=== PATIENT | male | born 1955 | race Caucasian/White ===

== ENCOUNTER 2018-04-05 10:38 | Emergency (ER) | payer BC ==
[2018-04-05] MEDS ORDERED: NACL 0.9% 1000 ML 1,000 ML IV ONE (11:46)
--- NOTE | 2018-04-05 11:48 | Emergency Department Report ---
ED Syncope HPI - General Chief Complaint: Dizziness Stated Complaint: PAIN Time Seen by Provider: 04/05/18 11:34 Source: patient Exam Limitations: no limitations - History of Present Illness Initial Comments: This is a 62-year-old male, unknown to this provider, primary care doctor is Dr. Davila. Patient presents to the ER with a complaint of dizziness, near syncope, resolved unsteady gait. Also has a history of hypertension. 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 He reports another similar episode earlier on this week. His symptoms lasted for a few seconds. They're painless. They did not radiate anywhere. The patient has no complaints at this time. He denies headache, neck pain, chest pain, abdominal pain, shortness of breath, urinary symptoms. The patient denies DVT, pulmonary embolus risk factors. Timing/Prior Episodes: single episode today, recent history Precipitating Factors: Positive: blurred vision Context: standing Loss of Consciousness: brief (seconds) Current Symptoms: back to normal, dizziness, lightheadedness. denies: blurred vision, chest pain, diaphoresis, headache, injury, loss of bladder control, loss of bowel control, motionless, nausea, pale, shallow/rapid breathing, weak/ absent pulse, weakness - Related Data Allergies/Adverse Reactions: Allergies No Known Allergies Allergy (Unverified 04/05/18 10:48) Home Medications: Ambulatory Orders Aspirin [Aspirin TAB] 325 mg PO QDAY 04/05/18 Atenolol/Chlorthalidone [Atenolol-Chlorthalidone 100-25] 1 each PO DAILY ED Review of Systems ROS: Stated complaint: PAIN Other details as noted in HPI Comment: All other systems reviewed and negative ED Past Medical Hx - Past Medical History Hx Hypertension: Yes Additional medical history: Prolapsed rectum repaired as child. - Social History Smoking Status: Former Smoker Substance Use Type: None - Medications Home Medications: Home Medications Medication Instructions Recorded Confirmed Last Taken Type Aspirin [Aspirin TAB] 325 mg PO QDAY 04/05/18 04/05/18 Unknown History Atenolol/Chlorthalidone 1 each PO DAILY 04/05/18 04/05/18 04/05/18 History [Atenolol-Chlorthalidone 100-25] ED Physical Exam - General Limitations: No Limitations General appearance: alert, in no apparent distress - Head Head exam: Present: atraumatic, normocephalic - Eye Eye exam: Present: normal appearance, PERRL, EOMI, other (visual acuity intact to finger counting, color perception, reading at a close distance). Absent: nystagmus - ENT ENT exam: Present: normal exam, normal orophraynx, mucous membranes moist, normal external ear exam - Neck Neck exam: Present: normal inspection, full ROM - Respiratory Respiratory exam: Present: normal lung sounds bilaterally. Absent: respiratory distress - Cardiovascular Cardiovascular Exam: Present: regular rate, normal rhythm, normal heart sounds. Absent: bradycardia, tachycardia, irregular rhythm, systolic murmur, diastolic murmur, rubs, gallop - GI/Abdominal GI/Abdominal exam: Present: soft, normal bowel sounds. Absent: distended, tenderness, guarding, rebound, rigid, pulsatile mass - Rectal Rectal exam: Present: deferred - Extremities Exam Extremities exam: Present: normal inspection, full ROM, normal capillary refill. Absent: tenderness, pedal edema, joint swelling, calf tenderness - Back Exam Back exam: Present: normal inspection, full ROM. Absent: tenderness, CVA tenderness (R), paraspinal tenderness, vertebral tenderness - Neurological Exam Neurological exam: Present: alert, oriented X3, CN II-XII intact, normal gait ( negative pass pointing. Negative pronator drift. No pass pointing. Normal [id number]. Normal gait. Negative Romberg.), other (Extraocular movements intact. Tongue midline. No facial droop. Facial sensation intact to light touch in the V1, V2, V3 distribution bilaterally. 5 and 5 strength in 4 extremities.. Sensation is intact to light touch in 4 extremities.). Absent: motor sensory deficit - Psychiatric Psychiatric exam: Present: normal affect, normal mood - Skin Skin exam: Present: warm, dry, intact, normal color. Absent: rash ED Course Vital Signs 04/05/18 04/05/18 04/05/18 10:42 10:46 10:56 Temperature 98.4 F 98.7 F Pulse Rate 63 63 Respiratory 18 15 18 Rate Blood Pressure 122/74 Blood Pressure 132/75 [Left] O2 Sat by Pulse 96 95 97 Oximetry 04/05/18 04/05/18 04/05/18 11:10 11:15 11:31 Temperature Pulse Rate 63 59 L 76 Respiratory 16 9 L 11 L Rate Blood Pressure 98/66 100/76 Blood Pressure [Left] O2 Sat by Pulse 97 97 95 Oximetry 04/05/18 04/05/18 04/05/18 11:45 12:04 12:15 Temperature Pulse Rate 54 L 49 L 55 L Respiratory 13 16 Rate Blood Pressure 132/101 132/101 113/70 Blood Pressure [Left] O2 Sat by Pulse 97 Oximetry 04/05/18 04/05/18 04/05/18 12:30 12:45 13:01 Temperature Pulse Rate 65 56 L 56 L Respiratory 20 20 14 Rate Blood Pressure 124/103 124/73 121/74 Blood Pressure [Left] O2 Sat by Pulse 97 93 97 Oximetry 04/05/18 04/05/18 04/05/18 13:15 13:31 13:45 Temperature Pulse Rate 58 L 64 58 L Respiratory 12 14 23 Rate Blood Pressure 104/84 125/75 125/75 Blood Pressure [Left] O2 Sat by Pulse 96 96 100 Oximetry 04/05/18 04/05/18 04/05/18 14:00 14:21 14:31 Temperature Pulse Rate 57 L 69 62 Respiratory 19 19 Rate Blood Pressure 125/75 125/75 140/71 Blood Pressure [Left] O2 Sat by Pulse 98 99 Oximetry - Reevaluation(s) Reevaluation #1: 04/05/18 13:23 Differential diagnosis, including but not limited to: Orthostasis, vasovagal event, structural cardiac disease, transient ischemic attack, pulmonary embolus 04/05/18 14:05 Assessment and plan: 62-year-old male with a few episodes of lightheadedness, subjective unsteady gait, near syncope. He is clinically sober at this time, has a [place] Coma Scale of 15, NIH score of 0. He walks with a steady gait and has no cerebellar signs and is hemodynamically stable at this time. His EKG showed a left axis with a left anterior fascicular block, as well as right bundle-branch block morphology. Noncontrast CT scan of the brain was negative. A d-dimer was sent and is elevated, therefore CT scan of the chest is pending. Patient will be admitted to the hospital for evaluation of abnormal EKG, near syncope versus TIA. Does not meet TPA criteria at this time, given NIH score of 0. Reevaluation #2: 06/19/18 15:28 CT scan of the chest is negative. Vital signs remain unchanged. Case presented to the Hospital physician, Dr. Stovall, who accepted the patient to the medical service. ED Medical Decision Making - Lab Data Result diagrams: 04/05/18 12:37 04/05/18 12:37 Vital Signs 04/05/18 04/05/18 04/05/18 10:42 10:46 10:56 Temperature 98.4 F 98.7 F Pulse Rate 63 63 Respiratory 18 15 18 Rate Blood Pressure 122/74 Blood Pressure 132/75 [Left] O2 Sat by Pulse 96 95 97 Oximetry 04/05/18 11:10 Temperature Pulse Rate 63 Respiratory 16 Rate Blood Pressure Blood Pressure [Left] O2 Sat by Pulse 97 Oximetry Lab Results 04/05/18 04/05/18 04/05/18 Range/Units 10:57 12:37 12:37 WBC 7.8 (4.5-11.0) K/mm3 RBC 4.89 (3.65-5.03) M/mm3 Hgb 14.8 (11.8-15.2) gm/dl Hct 43.8 (35.5-45.6) % MCV 90 (84-94) fl MCH 30 (28-32) pg MCHC 34 (32-34) % RDW 14.1 (13.2-15.2) % Plt Count 228 (140-440) K/mm3 Lymph % (Auto) 43.8 H (13.4-35.0) % [place] % (Auto) 5.4 (0.0-7.3) % Eos % (Auto) 3.2 (0.0-4.3) % Baso % (Auto) 0.5 (0.0-1.8) % Lymph # 3.4 (1.2-5.4) K/mm3 [place] # 0.4 (0.0-0.8) K/mm3 Eos # 0.3 (0.0-0.4) K/mm3 Baso # 0.0 (0.0-0.1) K/mm3 Seg Neutrophils % 47.1 (40.0-70.0) % Seg Neutrophils # 3.7 (1.8-7.7) K/mm3 PT 12.8 (12.2-14.9) Sec. INR 0.92 (0.87-1.13) APTT 26.1 (24.2-36.6) Sec. Thrombin Time 18.8 (15.1-19.6) Sec. D-Dimer 279.16 H (0-234) ng/mlDDU POC Glucose 86 (70-105) Magnesium (1.7-2.3) mg/dL 04/05/18 Range/Units 12:37 WBC (4.5-11.0) K/mm3 RBC (3.65-5.03) M/mm3 Hgb (11.8-15.2) gm/dl Hct (35.5-45.6) % MCV (84-94) fl MCH (28-32) pg MCHC (32-34) % RDW (13.2-15.2) % Plt Count (140-440) K/mm3 Lymph % (Auto) (13.4-35.0) % [place] % (Auto) (0.0-7.3) % Eos % (Auto) (0.0-4.3) % Baso % (Auto) (0.0-1.8) % Lymph # (1.2-5.4) K/mm3 [place] # (0.0-0.8) K/mm3 Eos # (0.0-0.4) K/mm3 Baso # (0.0-0.1) K/mm3 Seg Neutrophils % (40.0-70.0) % Seg Neutrophils # (1.8-7.7) K/mm3 PT (12.2-14.9) Sec. INR (0.87-1.13) APTT (24.2-36.6) Sec. Thrombin Time (15.1-19.6) Sec. D-Dimer (0-234) ng/mlDDU POC Glucose (70-105) Magnesium 1.80 (1.7-2.3) mg/dL - EKG Data -: EKG Interpreted by In EKG shows normal: sinus rhythm Rate: normal - EKG Data When compared to previous EKG there are: previous EKG unavailable 04/05/18 13:22 Bradycardia, 61 bpm, , left axis, left ventricular hypertrophy, incomplete right bundle-branch block, left anterior fascicular block. - Radiology Data Radiology results: report reviewed, image reviewed Noncontrast CT scan of the brain is negative. X-ray of the chest is negative. Critical care attestation.: If time is entered above; I have spent that time in minutes in the direct care of this critically ill patient, excluding procedure time. ED Disposition Clinical Impression: Abnormal EKG, Near syncope Disposition: OP ADMIT IP TO THIS HOSP Is pt being admited?: Yes Condition: Good Referrals: PRIMARY CARE, [Primary Care Provider] - 3-5 Days
--- NOTE | 2018-04-05 12:16 | XRay Report ---
AP CHEST: HISTORY: Shortness of breath AP view of the chest demonstrates a normal mediastinal and cardiac contour with clear lungs and normal bony and soft tissue structures. IMPRESSION: Unremarkable AP chest.
--- NOTE | 2018-04-05 12:17 | Cat Scan Report ---
CT HEAD WITHOUT CONTRAST: HISTORY: Stroke symptoms. TECHNIQUE: Sequential 2.5mm CT images. COMPARISON: none. FINDINGS: Cerebral Parenchyma: Within normal limits. Cerebellum: Within normal limits. Brainstem: Within normal limits. Ventricles: Normal. Sella: Normal. Extra-axial spaces: Normal. Basal Cisterns: Normal. Intracranial Hemorrhage: None. Midline Shift: None. Calvarium: Normal. Sinuses: Normal. Mastoid Air Cells: Normal. Visualized Orbits: Normal. IMPRESSION: Cranial CT scan within normal limits.
[2018-04-05 12:56] LABS: Basophils % (Auto) 0.5 % (0.0-1.8); Eosinophils # (Auto) 0.3 K/mm3 (0.0-0.4); Eosinophils % (Auto) 3.2 % (0.0-4.3); Hematocrit 43.8 % (35.5-45.6); Hemoglobin 14.8 gm/dl (11.8-15.2); Lymphocytes # (Auto) 3.4 K/mm3 (1.2-5.4); Lymphocytes % (Auto) 43.8 % (13.4-35.0); Mean Corpuscular HGB Conc 34 % (32-34); Mean Corpuscular Hemoglobin 30 pg (28-32); Mean Corpuscular Volume 90 fl (84-94); Monocytes # (Auto) 0.4 K/mm3 (0.0-0.8); Monocytes % (Auto) 5.4 % (0.0-7.3); Platelet Count 228 K/mm3 (140-440); Red Blood Count 4.89 M/mm3 (3.65-5.03); Red Cell Distribution Width 14.1 % (13.2-15.2)
[2018-04-05 13:06] LABS: INR 0.92 (0.87-1.13)
[2018-04-05 13:07] LABS: Partial Thromboplastin Time 26.1 Sec. (24.2-36.6); Thrombin Time 18.8 Sec. (15.1-19.6)
[2018-04-05 13:26] LABS: Creatine Kinase MB 2.2 ng/mL (0.0-4.0)
[2018-04-05 13:28] LABS: Alanine Aminotransferase 23 units/L (7-56); Albumin 3.9 g/dL (3.9-5); BUN/Creatinine Ratio 14; Blood Urea Nitrogen 14 mg/dL (9-20); Calcium 9.1 mg/dL (8.4-10.2); Hemolysis Index 6
[2018-04-05] MEDS ORDERED: K-DUR PO ONE (14:04)
--- NOTE | 2018-04-05 14:52 | Cat Scan Report ---
CTA CHEST: HISTORY: Dizziness, near syncope. COMPARISON: none. TECHNIQUE: Helical CT in 1.25mm intervals following IV contrast. Pulmonary embolus protocol. Sagittal and coronal reformatted images. Rotational MIP images. FINDINGS: Contrast bolus is satisfactory. No pulmonary embolus is identified. Thyroid gland: Normal. Tracheobronchial tree: Normal. Esophagus: Normal. Heart: Normal. Pericardium: Normal. Mediastinum: Normal. Lung Kerr: normal. Pleural Spaces: Normal. Musculoskeletal: Normal. IMPRESSION: No evidence for pulmonary embolus. Unremarkable CT chest with contrast.
[2018-04-05] MEDS ORDERED: BABY ASPIRIN PO ONE (15:29)
--- NOTE | 2018-04-05 16:14 | Event Note ---
Date: 04/05/18 62-year-old male,primary care doctor is Dr. Davila presents to the ER with a complaint of dizziness, near syncope, resolved unsteady gait. Also has a history of hypertension. 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 Labs -Normal He reports another similar episode earlier on this week. His symptoms lasted for a few seconds. They're painless. They did not radiate anywhere. The patient has no complaints at this time. He denies headache, neck pain, chest pain, abdominal pain, shortness of breath, urinary symptoms. The patient denies DVT, pulmonary embolus risk factors. Labs normal except K=3.3
--- NOTE | 2018-04-05 16:20 | Event Note ---
Date: 04/05/18 Date: 04/05/18 62-year-old male,primary care doctor is Dr. Davila presents to the ER with a complaint of dizziness, near syncope, resolved unsteady gait. Also has a history of hypertension. 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 Labs -Normal He reports another similar episode earlier on this week. His symptoms lasted for a few seconds. They're painless. They did not radiate anywhere. The patient has no complaints at this time. He denies headache, neck pain, chest pain, abdominal pain, shortness of breath, urinary symptoms. The patient denies DVT, pulmonary embolus risk factors. Labs normal except K=3.3 Dx Presyncope F/u with Dr Piero Zhao tomorrow [facility] 7Appointment made [phone]
[2018-04-05 16:23] LABS: Bilirubin,Urine NEG (Negative); Blood,Urine NEG (Negative); Color,Urine Yellow (Yellow); Mucus,Urine FEW /HPF; Protein,Urine <15 mg/dL mg/dL (Negative); Urobilinogen,Urine < 2.0 mg/dL (<2.0)
[2018-04-05 16:39] LABS: Amphetamine Screen,Urine PRESUMPTIVE NEGATIVE; Benzodiazepines Screen,Urine PRESUMPTIVE NEGATIVE; Cannabinoid Screen,Urine PRESUMPTIVE NEGATIVE; Cocaine Screen,Urine PRESUMPTIVE NEGATIVE; Methadone Screen,Urine PRESUMPTIVE NEGATIVE; Opiate Screen,Urine PRESUMPTIVE NEGATIVE
[2018-04-05 17:13] VITALS: BP 116/76
== END 2018-04-05 17:25 | disposition home or self-care (01) ==
LOC: ED 10:38 → 4A 14:54 → UNDOADMIN 14:54 → 4A 17:25
DX: R55 Syncope and collapse (principal); R94.31 Abnormal electrocardiogram [ECG] [EKG]; I10 Essential (primary) hypertension; Z87.891 Personal history of nicotine dependence; Z79.82 Long term (current) use of aspirin
CPT/HCPCS: 36415; 70450; 71045; 71275; 80053; 80307; 81001; 82550; 82553; 82962; 83735; 84443; 84484; 85025; 85379; 85610; 85670; 85730; 93005; 93010; 96360; 99285; J7030; Q9967

== ENCOUNTER 2018-05-04 08:00 | Outpatient (CLI) | payer BC | END 2018-05-04 08:01 | disposition home or self-care (01) | LOC: VAS 08:00 | PROVIDERS: ATTEND Internal Medicine | DX: I34.0 Nonrheumatic mitral (valve) insufficiency (principal); I10 Essential (primary) hypertension; Z87.891 Personal history of nicotine dependence | CPT/HCPCS: 93306; 93880 ==